=== PATIENT | female | born 1985 | race Caucasian/White ===

== ENCOUNTER 2023-09-25 03:25 | Emergency (ER) | payer BC ==
[2023-09-25] MEDS ORDERED: Bacitracin 1 PK ONE (03:50)
[2023-09-25] MEDS ORDERED: Lidocaine 1% w/Epinephrine 1:200K 30 ML VIAL ONE (03:50)
[2023-09-25] MEDS ORDERED: Boostrix 0.5 ML (Tdap) VIAL (>/=7 yrs of age) ONE (04:14)
== END 2023-09-25 05:08 | disposition home or self-care (01) ==
LOC: CSHERS 03:25
DX: S01.01XA Laceration without foreign body of scalp, initial encounter (principal); S43.402A Unspecified sprain of left shoulder joint, initial encounter; Z23 Encounter for immunization; W19.XXXA Unspecified fall, initial encounter
CPT/HCPCS: 12002; 70450; 72125; 90471; 90715

== ENCOUNTER 2025-06-11 12:54 | Outpatient (CLI) | payer BC | END 2025-06-11 12:55 | disposition home or self-care (01) | LOC: CSHMAMMO 12:54 | PROVIDERS: ATTEND Advanced Practice Midwife | DX: N64.4 Mastodynia (principal); R92.343 Mammographic extreme density, bilateral breasts | CPT/HCPCS: 77066; G0279 ==